=== PATIENT | female | born 2000 | race Two or more races ===

== ENCOUNTER → 2021-07-19 | Outpatient (CLI) | payer OTHER ==
[2021-07-19 14:08] LABS: FREE T4 1.01 ng/dL (0.76-1.46); THYROID STIM HORMONE (TSH) 2.341 uIU/mL (0.358-3.74)
[2021-07-19 22:02] LABS: CHOLESTEROL/HDL RATIO 5.1
[2021-07-20 22:11] LABS: FSH 3.3 mIU/mL (.); LUTEINIZING HORMONE 4.9 mIU/mL (.); PROLACTIN 17.9 ng/mL (4.8-23.3); T3 UPTAKE 22 % (24-39); TESTOSTERONE TOTAL 66 ng/dL (13-71); THYROXINE 8.7 ug/dL (4.5-12.0)
[2021-07-21 01:12] LABS: PROGESTERONE <0.1 ng/mL (.)
[2021-07-21 14:15] LABS: INSULIN LEVEL 71.1 uIU/mL (2.6-24.9)
== END ==
LOC: LAB 13:18
PROVIDERS: ATTEND Registered Nurse
DX: Z01.419 Encounter for gynecological examination (general) (routine) without abnormal findings (principal); N91.2 Amenorrhea, unspecified; E74.39 Other disorders of intestinal carbohydrate absorption; E88.81 Metabolic syndrome and other insulin resistance
CPT/HCPCS: 36415; 80061; 82627; 82947; 83001; 83002; 83525; 84144; 84146; 84403; 84436; 84439; 84443; 84479

== ENCOUNTER → 2021-07-29 | Outpatient (CLI) | payer OTHER ==
--- NOTE | 2021-07-29 16:33 | RAD ---
INDICATION: Reason: PELVIC PAIN, NO PERIOD FOR 3 YRS / Spl. Instructions: / History: COMPARISON: None. TECHNIQUE: Grayscale and color ultrasound images uterus and adnexa. Transabdominal and transvaginal images obtained. Transvaginal images were needed to better visualize structures that were limited on transabdominal imaging. FINDINGS: Uterus: 52 x 36 x 28 mm. 4 Millimeter endometrial stripe. Right Ovary: 42 x 23 x 22 mm. Left Ovary: 37 x 23 x 22 mm. Vascular flow identified to bilateral ovaries. Nabothian cyst at cervical region. IMPRESSION: * Vascular flow seen to the ovaries. * Nabothian cyst at cervix. Electronically signed by: Hemanth Grewal MD (07/29/2021 4:30 PM) [id number]
== END ==
LOC: US 14:09
PROVIDERS: ATTEND Registered Nurse
DX: E28.2 Polycystic ovarian syndrome (principal); N88.8 Other specified noninflammatory disorders of cervix uteri
CPT/HCPCS: 76856